=== PATIENT | female | born 1960 | race Caucasian/White ===

== ENCOUNTER 2020-07-19 09:57 | Outpatient (REF) | payer MEDICAID, SELFPAY ==
--- NOTE | 2020-07-19 10:02 | MM_ITS ---
EXAMINATION: MM SCREENING DIGITAL BREAST TOMOSYNTHESIS, BILATERAL CLINICAL INFORMATION: Screening. Asymptomatic. The lifetime risk of breast cancer based on the Tyrer-Cuzick Model is 6%. COMPARISON: Mammography: 12/08/2018, 12/03/2017, 06/18/2006 TECHNIQUE: Digital breast tomosynthesis is performed in both the craniocaudal and mediolateral oblique views along with computer-aided detection (CAD). Synthesized 2D images are generated from the tomosynthesis. Additional right CC view is provided. FINDINGS: The breasts are heterogeneously dense, which may obscure small masses (ACR BI-RADS breast composition Category c). There are no significant masses, abnormal calcifications, or other abnormalities. The axilla and skin contours are unremarkable. MM/MM tomosynthesis screening BI IMPRESSION: No mammographic evidence of malignancy. ASSESSMENT: BI-RADS 1: Negative RECOMMENDATION: Routine annual mammography screening. This patient's information was entered into a reminder system with a target due date for their next mammogram.
== END 2020-07-19 09:58 | disposition home or self-care (01) ==
LOC: HO.MAMMO 09:57
PROVIDERS: PCP Internal Medicine; Visit Provider Internal Medicine
DX: Z12.31 Encounter for screening mammogram for malignant neoplasm of breast (principal)
CPT/HCPCS: 77063; 77067

== ENCOUNTER 2021-07-27 11:19 | Outpatient (REF) | payer MEDICAID, SELFPAY ==
--- NOTE | ~2021-07-27 | MM_ITS ---
EXAMINATION: MM SCREENING DIGITAL BREAST TOMOSYNTHESIS, BILATERAL CLINICAL INFORMATION: Screening. Asymptomatic. The lifetime risk of breast cancer based on the Tyrer-Cuzick Model is 6%. COMPARISON: Mammography: 07/19/2020, 12/08/2018, 12/03/2017 TECHNIQUE: Digital breast tomosynthesis is performed in both the craniocaudal and mediolateral oblique views along with computer-aided detection (CAD). Synthesized 2D images are generated from the tomosynthesis. FINDINGS: The breasts are heterogeneously dense, which may obscure small masses (ACR BI-RADS breast composition Category c). There are no significant masses, abnormal calcifications, or other abnormalities. No significant changes from prior studies. No developing density. MM/MM tomosynthesis screening BI IMPRESSION: No mammographic evidence of malignancy. ASSESSMENT: BI-RADS 1: Negative RECOMMENDATION: Routine annual mammography screening. This patient's information was entered into a reminder system with a target due date for their next mammogram.
== END 2021-07-27 11:20 | disposition home or self-care (01) ==
LOC: HO.MAMMO 11:19
PROVIDERS: PCP Internal Medicine; Visit Provider Internal Medicine
DX: Z12.31 Encounter for screening mammogram for malignant neoplasm of breast (principal)
CPT/HCPCS: 77063; 77067

== ENCOUNTER 2022-05-03 06:39 | Day surgery (SDC) | payer MEDICAID, SELFPAY ==
--- NOTE | 2022-05-02 09:42 | HO.ANESPROP2 ---
Documented by User: Asha Roe NP 05/02/22 09:44 HPI - Anesthesia Eval Consult details Narrative: 61yo F for Colonoscopy PMFSH Past Medical History Medical History Anxiety Arrhythmia Arthritis Carpal tunnel syndrome Depression HTN (hypertension) Hypercholesteremia Palpitations PTSD (post-traumatic stress disorder) Rheumatism Surgical History Surgical History History of tubal ligation Hx of cataract extraction Hx of colonoscopy Social History Social History Patient Tobacco Use Status: Never used Tobacco Use of substances other than those prescribed or required for medical reasons: No Are you DNR?: No Advance Directives: No Advance Directives Information Provided: Yes Meds Allergies Allergy/AdvReac Type Severity Reaction Status Date / Time aripiprazole [From Abilify] Allergy Unknown Verified 04/30/22 11:25 atorvastatin Allergy Unknown Verified 04/30/22 11:25 quetiapine [From Seroquel] Allergy Unknown Verified 04/30/22 11:25 risperidone [From Risperdal] Allergy Unknown Verified 04/30/22 11:25 Home Medications Medication Instructions Recorded Confirmed Last Taken Type amlodipine 2.5 mg tablet 2.5 mg PO DAILY 04/30/22 04/30/22 05/03/22 History bupropion HCl 300 mg 24 hr tablet, 300 mg PO QAM 04/30/22 04/30/22 Unknown History extended release clonazepam 1 mg tablet 1 mg PO BID 04/30/22 04/30/22 Unknown History doxepin 10 mg capsule 10 mg PO BEDTIME 04/30/22 04/30/22 Unknown History hydroxyzine HCl 50 mg tablet 50 mg PO BID PRN Anxiety 04/30/22 04/30/22 Unknown History lamotrigine 100 mg tablet 100 mg PO BEDTIME 04/30/22 04/30/22 Unknown History lisinopril 20 1 tab PO DAILY 04/30/22 04/30/22 05/03/22 History mg-hydrochlorothiazide 25 mg tablet loratadine 10 mg capsule 10 mg PO DAILY 04/30/22 04/30/22 Unknown History metoprolol succinate 100 mg 100 mg PO DAILY 04/30/22 04/30/2222 History tablet,extended release 24 hr prazosin 1 mg capsule 1 mg PO BEDTIME 04/30/22 04/30/22 Unknown History rosuvastatin 10 mg tablet 10 mg PO DAILY 04/30/22 04/30/22 Unknown History Exam Exam Date and Time: May 02, [id number] Assessment and Plan Assessment Anesthesia Assessment: Chart Reviewed Documented by User: Dyana Haley MD 05/03/22 07:39 ON LICENSE OF [facility] Past Medical History Medical History Anxiety Arrhythmia Arthritis Carpal tunnel syndrome Depression HTN (hypertension) Hypercholesteremia Palpitations PTSD (post-traumatic stress disorder) Rheumatism Surgical History Surgical History History of tubal ligation Hx of cataract extraction Hx of colonoscopy History of Problems with Anesthesia: No Social History Social History Patient Tobacco Use Status: Never used Tobacco Use of substances other than those prescribed or required for medical reasons: No Are you DNR?: No Advance Directives: No Advance Directives Information Provided: Yes Meds Allergies Allergy/AdvReac Type Severity Reaction Status Date / Time aripiprazole [From Abilify] Allergy Unknown Verified 04/30/22 11:25 atorvastatin Allergy Unknown Verified 04/30/22 11:25 quetiapine [From Seroquel] Allergy Unknown Verified 04/30/22 11:25 risperidone [From Risperdal] Allergy Unknown Verified 04/30/22 11:25 Home Medications Medication Instructions Recorded Confirmed Last Taken Type amlodipine 2.5 mg tablet 2.5 mg PO DAILY 04/30/22 04/30/22 05/03/22 History bupropion HCl 300 mg 24 hr tablet, 300 mg PO QAM 04/30/22 04/30/22 Unknown History extended release clonazepam 1 mg tablet 1 mg PO BID 04/30/22 04/30/22 Unknown History doxepin 10 mg capsule 10 mg PO BEDTIME 04/30/22 04/30/22 Unknown History hydroxyzine HCl 50 mg tablet 50 mg PO BID PRN Anxiety 04/30/22 04/30/22 Unknown History lamotrigine 100 mg tablet 100 mg PO BEDTIME 04/30/22 04/30/22 Unknown History lisinopril 20 1 tab PO DAILY 04/30/22 04/30/22 05/03/22 History mg-hydrochlorothiazide 25 mg tablet loratadine 10 mg capsule 10 mg PO DAILY 04/30/22 04/30/22 Unknown History metoprolol succinate 100 mg 100 mg PO DAILY 04/30/22 04/30/22 05/03/22 History tablet,extended release 24 hr prazosin 1 mg capsule 1 mg PO BEDTIME 04/30/22 04/30/22 Unknown History rosuvastatin 10 mg tablet 10 mg PO DAILY 04/30/22 04/30/22 Unknown History Exam Airway Mallampati Class: II TM Dist: >3cm Neck ROM: Full Loose/Missing/Broken Teeth: No Heart: RRR Lungs: CTA Assessment and Plan Assessment Anesthesia Assessment: Anesthesia Plan Discussed Final Anesthetic Review History of Problems with Anesthesia: No NPO: Yes ASA Class: II Final Preanesthetic Review: Meds/Allgs Chart Reviewed, Consent Obtained/Reviewed and Anes Risks/Benef Reviewed Patient Risk: Low Procedure Risk: Low Anesthetic Plan Anesthetic Plan: MAC: Disposition: Standard PACU
[2022-05-03 06:58] VITALS: BP 140/70; PULSE 78; RESP 18; TEMP 36.2; O2SAT 98; BMI 30.7
[2022-05-03] MEDS: Lactated Ringers 1,000 ML 100 ML IVCONT (07:20)
[2022-05-03 08:42] VITALS: BP 80/40; PULSE 58; RESP 16; TEMP 36.4; O2SAT 99
--- NOTE | 2022-05-03 08:44 | P.BOP_ITS ---
Brief Operative Note Date of Service: 05/03/22 Pre-op diagnosis: Screening Post-op diagnosis: other (Diverticulosis) Procedure: Colonoscopy to the cecum Surgeon: Antelmo Ashley Anesthesia: MAC Was an Filling Hauler Weaving used for this Procedure?: No Estimated blood loss (mL): 0 Pathology: none sent Condition: stable Disposition: PACU
[2022-05-03 08:57] VITALS: BP 87/46; PULSE 60; RESP 16; O2SAT 97
[2022-05-03 09:12] VITALS: BP 120/69; PULSE 60; RESP 16; TEMP 36.4; O2SAT 98
--- NOTE | 2022-05-03 10:34 | OP_ITS ---
05/03/2022 SURGEON: Antelmo Ashley MD INDICATIONS: The patient presents for evaluation of colorectal cancer screening. Full consent has been obtained from her for this, including risks of bleeding and perforation. PREOPERATIVE DIAGNOSIS: Colorectal cancer screening. POSTOPERATIVE DIAGNOSIS: Colorectal cancer screening, sigmoid diverticulosis, and internal hemorrhoids. PROCEDURE PERFORMED: Colonoscopy to the cecum. ESTIMATED BLOOD LOSS: COMPLICATIONS: ANESTHESIA: Monitored anesthesia care. ASSISTANTS: SPECIMENS: DESCRIPTION OF PROCEDURE: The patient was placed in the left lateral decubitus position. The digital rectal exam revealed no abnormalities. The Olympus video pediatric colonoscope was entered into the rectum and advanced easily to the cecum. Once in the cecum, I did identify a normal-appearing cecal pouch with appendiceal orifice and a normal-appearing ileocecal valve. The entire cecum and ileocecal valve appeared normal. The scope was slowly withdrawn assessing all mucosal surfaces carefully. Preparation was excellent. I did not visualize any sign of polyps, colitis, nor angiodysplasia. There were occasional diverticula in the sigmoid colon. In the rectum, the scope was retroflexed visualizing internal hemorrhoids, but no other pathology. The rectal mucosa appeared normal. Scope was straightened and withdrawn from the patient. She tolerated the procedure well and was returned to the recovery area in stable condition. IMPRESSION: 1. Mild diverticulosis. 2. Internal hemorrhoids. PLAN: Given her negative exam and negative family history, I would recommend a followup colonoscopy in 10 years for further screening. She will otherwise see me on a p.r.n. basis. Antelmo Ashley MD RMChuy/KYL / [id number] MTDD
== END 2022-05-03 09:40 | disposition home or self-care (01) ==
PROVIDERS: PCP Internal Medicine; Visit Provider Internal Medicine
PROC: 0DJD8ZZ Inspection of Lower Intestinal Tract, Via Natural or Artificial Opening Endoscopic (ICD-10-PCS; CPT 45378; principal; 2022-05-03 07:30)
DX: Z12.11 Encounter for screening for malignant neoplasm of colon (principal); Z86.010 Personal history of colon polyps; K57.30 Diverticulosis of large intestine without perforation or abscess without bleeding; K64.8 Other hemorrhoids; K59.00 Constipation, unspecified; I49.9 Cardiac arrhythmia, unspecified; I10 Essential (primary) hypertension; E78.00 Pure hypercholesterolemia, unspecified; M79.0 Rheumatism, unspecified; F32.A Depression, unspecified; F43.10 Post-traumatic stress disorder, unspecified; Z79.899 Other long term (current) drug therapy; Z88.8 Allergy status to other drugs, medicaments and biological substances; Z98.51 Tubal ligation status
CPT/HCPCS: 45378

== ENCOUNTER 2022-07-29 10:33 | Outpatient (REF) | payer MEDICAID, SELFPAY ==
--- NOTE | ~2022-07-29 | MM_ITS ---
EXAMINATION: MM SCREENING DIGITAL BREAST TOMOSYNTHESIS, BILATERAL CLINICAL INFORMATION: Screening. Asymptomatic. The lifetime risk of breast cancer based on the Tyrer-Cuzick Model is 5%. COMPARISON: Mammography: 07/27/2021, 07/19/2020, 12/08/2018 TECHNIQUE: Digital breast tomosynthesis is performed in both the craniocaudal and mediolateral oblique views along with computer-aided detection (CAD). Synthesized 2D images are generated from the tomosynthesis. FINDINGS: The breasts are heterogeneously dense, which may obscure small masses (ACR BI-RADS breast composition Category c). There are no significant masses, abnormal calcifications, or other abnormalities. Parenchymal pattern is similar to prior studies. There is no developing density or architectural abnormality. The axilla and skin contours are unremarkable. No significant changes. MM/MM tomosynthesis screening BI IMPRESSION: No mammographic evidence of malignancy. ASSESSMENT: BI-RADS 1: Negative RECOMMENDATION: Routine annual mammography screening. This patient's information was entered into a reminder system with a target due date for their next mammogram.
== END 2022-07-29 10:34 | disposition home or self-care (01) ==
LOC: HO.MAMMO 10:33
PROVIDERS: PCP Internal Medicine; Visit Provider Internal Medicine
DX: Z12.31 Encounter for screening mammogram for malignant neoplasm of breast (principal)
CPT/HCPCS: 77063; 77067

== ENCOUNTER 2023-09-12 08:53 | Outpatient (REF) | payer MEDICAID, SELFPAY | END 2023-09-12 08:54 | disposition home or self-care (01) | LOC: HO.MAMMO 08:53 | PROVIDERS: PCP Internal Medicine; Visit Provider Internal Medicine | DX: Z12.31 Encounter for screening mammogram for malignant neoplasm of breast (principal) | CPT/HCPCS: 77063; 77067 ==

== ENCOUNTER → 2023-09-12 09:15 | Outpatient (BNV) | payer MEDICAID, SELFPAY | PROVIDERS: PCP Internal Medicine; Visit Provider Radiology Diagnostic Radiology | DX: Z12.31 Encounter for screening mammogram for malignant neoplasm of breast (principal) | CPT/HCPCS: 77063; 77067 ==

== ENCOUNTER 2024-10-13 15:42 | Outpatient (REF) | payer MEDICAID, SELFPAY ==
--- OUTSIDE RECORDS SUMMARY | 2024-10-13 15:45 | XMS_ITS | Clinical Summary ---
Author Organization [facility] ity Address [address] [place] [address] Care Team Providers Care Bus Attendant Name Role Phone Unavailable Primary Care Provider Unavailabl e Social History Tobacco Use Types Packs/Day Years Used Date Smoking Tobacco: Never Assessed Comments Unknown Sex and Gender Information Value Date Recorded Sex Assigned at Not on file Legal Sex Female 8:26 PM EST Gender Identity Not on file Sexual Orientation Not on file Plan of Treatment Health Maintenance Due Date Last Done Comments Breast Cancer Screening 1960 DTaP,Tdap,and Td Vaccines (1 - Tdap) 1977 Cervical Cancer Screening: P ap Smear 12/24/1979 Pneumococcal Vaccine: 50+ Ye ars (1 of 1 - PCV) 2008 Zoster Vaccines (1 of 2) 2008 Colorectal Cancer Screening: Colonoscopy 09/19/2023 Depression Screening 09/19/2023 Hepatitis C Screening 09/19/2023 Osteoporosis Screening (Bone Density Screening) 09/19/2023 Social Influencers of Health Screening 09/19/2023 Falls Risk Assessment 12/24/2023 COVID-19 Vaccine ( - 2023-2 5 season) 2024 Influenza Vaccine (#1) 2024 RSV Immunization Patients 60 + Years Old (1 - 1-dose 75+ series) 2033 HIB Vaccines Aged Out No longer eligi ble based on patient's age to complete this topic HPV Vaccines Aged Out No longer eligi ble based on patient's age to complete this topic Hepatitis A Vaccines Aged Out No long er eligible based on patient's age to complete this topic Hepatitis B Vaccines Aged Out No long er eligible based on patient's age to complete this topic IPV Vaccines Aged Out No longer eligi ble based on patient's age to complete this topic MMR Vaccines Aged Out No longer eligi ble based on patient's age to complete this topic Meningococcal ACWY Vaccine Aged Out N o longer eligible based on patient's age to complete this topic Meningococcal B Vacine Aged Out No lo nger eligible based on patient's age to complete this topic Pneumococcal Vaccine: Pediat rics (0 to 5 Years) and At-Risk Patients (6 to 64 Years) Aged Out No longer eligible b ased on patient's age to complete this topic RSV Immunization Patients Un irvin 20 months Aged Out No longer eligible b ased on patient's age to complete this topic Varicella Vaccines Aged Out No longer eligible based on patient's age to complete this topic
--- OUTSIDE RECORDS SUMMARY | 2024-10-13 15:46 | XMS_ITS | Clinical Summary ---
Author Organization [facility] Address [address] [facility] [address] [place] [address] Phone Care Team Providers Care Wildlife Biologist Name Role Phone Moni Sheriff MD Primary Care Provider [phone] Allergies Active Allergy Reactions Criticality Noted Date Comments Aripiprazole 07/31/2021 Atorvastatin 07/31/2021 Myalgia= Muscle pain Risperidone 07/31/2021 Twitching Quetiapine 07/31/2021 Sweaty, Headache, Nervous Medications doxepin (SINEquan) 10 MG capsule Take 10 mg by mouth every night Active fluticasone (FLONASE) 50 MCG/ACT nasal spray Administer 1 spray into each nostril if needed Active clonazePAM (KlonoPIN) 1 MG tablet Take 1 mg by mouth 2 (two) times a day Active lamoTRIgine (LaMICtal) 25 MG tablet Take 25 mg by mouth 1 (one) time each day Active loratadine (CLARITIN) 10 MG tablet Take 10 mg by mouth if needed Active buPROPion XL (WELLBUTRIN XL) 300 MG 24 hr tablet Take 300 mg by mouth 1 (one) time each day Do not crush, chew, or split. Active hydrOXYzine (ATARAX) 50 MG tablet Take 50 mg by mouth 1 (one) time each day 1 Active metoprolol succinate XL (TOPROL-XL) 100 MG 24 hr tablet Take 100 mg by mouth 1 (one) time each day 1 Active rosuvastatin (CRESTOR) 10 MG tablet Take 10 mg by mouth 1 (one) time each day 2 Active hydroCHLOROthia zide 25 MG tablet Take 25 mg by mouth every morning 3 Active prazosin (MINIPRESS) 2 MG capsule 2 mg 4 Active lisinopril (PRINIVIL,ZESTR IL) 30 MG tablet Take 30 mg by mouth 1 (one) time each day 4 Active cholecalciferol (VITAMIN D-3) 50 MCG (2000 UT) tablet TAKE 1 TABLET BY MOUTH ONCE DAILY 90 tablet 3 4 Active Active Problems Problem Noted Date Diagnosed Date 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 08/01/2021 Stage 3a chronic kidney disease 08/01/2021 Hypertension 08/01/2021 Hypertensive chronic kidney disease with stage 1 through stage 4 chronic kidney disease, or unspecified chronic kidney disease 07/31/2021 Resolved Problems Problem Noted Date Diagnosed Date Resolved Date Pure hypercholesterolemia 07/31/2021 Impaired fasting glucose 07/31/202101/2022 Acute pharyngitis, not otherwise specified 07/31/2021 11/28/2021 Bipolar disorder 07/31/2021 11/28/2021 Body mass index (BMI) 29.0-29.9, adult 07/31/2021 11/28/2021 Encounters Date Type Department Care Team Description 08/14/2024 [facility] [address] [facility] [address] [address] [place] [id number] Wang Hilliard MD from Last 3 Months Social History Tobacco Use Types Packs/Day Years Used Date Smoking Tobacco: Never Smokeless Tobacco: Never Alcohol Use Standard Drinks/Week Comments Never 0 (1 standard drink = 0.6 oz pur e alcohol) Comments Unknown Sex and Gender Information Value Date Recorded Sex Assigned at Not on file Legal Sex Female 1:19 PM EST Gender Identity Not on file Sexual Orientation Not on file Last Filed Vital Signs Vital Sign Reading Time Taken Comments Blood Pressure 154/79 06/29/2024 11:04 AM EST Pulse 60 06/29/2024 11:04 AM EST Temperature - - Respiratory Rate - - Oxygen Saturation 98% 06/29/2024 11:04 AM EST Inhaled Oxygen Concentration - - Weight 79.4 kg (175 lb) 06/29/2024 11:04 AM EST Height 157.5 cm (5' 2 ) 06/29/2024 11:04 AM EST Body Mass Index 32.01 06/29/2024 11:04 AM EST Plan of Treatment Upcoming Encounters Date Type Department Care Team (Late st Contact Info) Description 12/27/2024 10:20 AM EDT Office Visit [facility] [address] [address] Wang Hilliard MD [address] [address] Health Maintenance Due Date Last Done Comments Breast Cancer Screening 1960 Pneumococcal Vaccine: 65+ Ye ars (1 of 2 - PCV) 1964 Pneumococcal Vaccine: Pediat rics (0 to 5 Years) and At-Risk Patients (6 to 64 Years) (1 of 2 - PCV) 1964 Colorectal Cancer Screening: Annual FOBT 12/24/2007 Colorectal Cancer Screening: Colonoscopy 12/24/2007 Colorectal Cancer Screening: Sigmoidoscopy 12/24/2007 Influenza Vaccine (#1) 2024 Hepatitis B Vaccine Aged Out No longe r eligible based on patient's age to complete this topic Insurance [place]ID [place] Care Teams Wildlife Biologist Relationship Specialty Start Date End Date Moni Sheriff MD [address] [place] [address] PCP - General Internal Medicine 07/26/21
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
== END 2024-10-13 15:43 | disposition home or self-care (01) ==
LOC: HO.MAMMO 15:42
PROVIDERS: PCP Internal Medicine; Visit Provider Internal Medicine
DX: Z12.31 Encounter for screening mammogram for malignant neoplasm of breast (principal)
CPT/HCPCS: 77063; 77067

== ENCOUNTER → 2024-10-13 16:00 | Outpatient (BNV) | payer MEDICAID, SELFPAY | PROVIDERS: PCP Internal Medicine; Visit Provider Internal Medicine | DX: Z12.31 Encounter for screening mammogram for malignant neoplasm of breast (principal) | CPT/HCPCS: 77063; 77067 ==